=== PATIENT | female | born 1990 | race American Indian/Alaskan Native ===

== ENCOUNTER 2021-03-05 04:58 | Emergency (ER) | payer SELFPAY ==
[2021-03-05 05:45] VITALS: BP 130/80
[2021-03-05 06:14] LABS: Basophils # (Auto) 0.1 K/mm3 (0.0-0.1); Basophils % (Auto) 1.3 % (0.0-1.8); Eosinophils # (Auto) 0.2 K/mm3 (0.0-0.4); Hematocrit 39.1 % (30.3-42.9); Hemoglobin 12.5 gm/dl (10.1-14.3); Lymphocytes # (Auto) 2.6 K/mm3 (1.2-5.4); Mean Corpuscular HGB Conc 32 % (30-34); Mean Corpuscular Volume 80 fl (79-97); Monocytes # (Auto) 0.7 K/mm3 (0.0-0.8); Monocytes % (Auto) 11.7 % (0.0-7.3); Platelet Count 195 K/mm3 (140-440); Red Blood Count 4.88 M/mm3 (3.65-5.03); Red Cell Distribution Width 13.5 % (13.2-15.2)
--- NOTE | 2021-03-05 07:08 | XRay Report ---
CHEST 2 VIEWS INDICATION / CLINICAL INFORMATION: Chest pain. Short of breath COMPARISON: None available. FINDINGS: SUPPORT DEVICES: None. HEART / MEDIASTINUM: No significant abnormality. LUNGS / PLEURA: No significant pulmonary or pleural abnormality. No pneumothorax. ADDITIONAL FINDINGS: No significant additional findings. IMPRESSION: 1. No acute findings. Signer Name: Gareth Gaines MD Signed: 03/05/2021 7:03 AM Workstation Name: [id number]
[2021-03-05 07:14] LABS: Alanine Aminotransferase 21 units/L (7-56); Albumin 4.5 g/dL (3.9-5); Blood Urea Nitrogen 15 mg/dL (7-17); Calcium 9.5 mg/dL (8.4-10.2); Hemolysis Index 23
[2021-03-05 07:18] LABS: BUN/Creatinine Ratio 25
[2021-03-05] MEDS ORDERED: POTASSIUM CHLORIDE ER 20 MEQ TAB PO ONE (10:15)
--- NOTE | 2021-03-05 10:21 | Emergency Department Report ---
ED General Adult HPI - General Chief complaint: Chest Pain Stated complaint: CHEST DISCOMFORT Time Seen by Provider: 03/05/21 10:09 Source: patient Mode of arrival: Ambulatory Limitations: No Limitations - History of Present Illness Initial comments: Patient is a 30-year-old female presents emergency room complaints of pain to her right lower wisdom tooth that began a week ago. She states that over the last few days she has had a burning sensation in her throat and she feels like she needs to belch and has a lot of increased gas. She states that it causes discomfort in her throat. She states that occasionally she also experiences the burning in the chest. She states that it is worse after eating and worse with lying flat at night. She states that she has had a couple episodes of vomiting after after eating. She denies any fever, shortness of breath, leg swelling, diarrhea, cough, hemoptysis, calf pain, diaphoresis. No past medical history. No allergies to medications. Patient denies any recent travel, recent surgery, sick contacts, hormone use, recent immobilization. [facility] 03/02/2021 - Related Data Previous Rx's Medication Instructions Recorded Last Taken Type Acetaminophen [Tylenol] 650 mg PO Q8HR PRN #20 capsule 03/05/21 Unknown Rx Famotidine [Pepcid] 40 mg PO QHS #30 tablet 03/05/21 Unknown Rx Sucralfate [Carafate] 1 gm PO ACHS 7 Days #21 tablet 03/05/21 Unknown Rx Allergies Allergy/AdvReac Type Severity Reaction Status Date / Time No Known Allergies Allergy Unverified 03/05/21 05:45 ED Review of Systems ROS: Stated complaint: CHEST DISCOMFORT Other details as noted in HPI Comment: All other systems reviewed and negative ED Past Medical Hx - Past Medical History Previous Medical History?: No - Surgical History Past Surgical History?: No - Social History Smoking Status: Current Every Day Smoker - Medications Home Medications: Home Medications Medication Instructions Recorded Confirmed Last Taken Type Acetaminophen [Tylenol] 650 mg PO Q8HR PRN #20 capsule 03/05/21 Unknown Rx Famotidine [Pepcid] 40 mg PO QHS #30 tablet 03/05/21 Unknown Rx Sucralfate [Carafate] 1 gm PO ACHS 7 Days #21 tablet 03/05/21 Unknown Rx ED Physical Exam - General Limitations: No Limitations General appearance: alert, in no apparent distress - Head Head exam: Present: atraumatic, normocephalic - Eye Eye exam: Present: normal appearance - ENT ENT exam: Present: normal orophraynx, mucous membranes moist, other (impacted wisdom tooth present to the right lower gumline, no induration or edema of the gumline, no facial edema, no fluctuance, no trismus, no tongue elevation, uvula is midline, no uvular edema or deviation) - Respiratory Respiratory exam: Present: normal lung sounds bilaterally. Absent: respiratory distress, wheezes, rales, rhonchi, stridor, chest wall tenderness, accessory muscle use, decreased breath sounds, prolonged expiratory - Cardiovascular Cardiovascular Exam: Present: regular rate, normal rhythm, normal heart sounds. Absent: systolic murmur, diastolic murmur, rubs, gallop - Neurological Exam Neurological exam: Present: alert, oriented X3 - Psychiatric Psychiatric exam: Present: normal affect, normal mood - Skin Skin exam: Present: warm, dry, intact ED Course Vital Signs 03/05/21 05:44 Temperature 97.8 F Pulse Rate 75 Respiratory 16 Rate Blood Pressure 130/80 O2 Sat by Pulse 100 Oximetry ED Medical Decision Making - Lab Data Result diagrams: 03/05/21 05:59 03/05/21 05:59 Lab Results 03/05/21 03/05/21 03/05/21 Range/Units 05:59 05:59 05:59 WBC 5.9 (4.5-11.0) K/mm3 RBC 4.88 (3.65-5.03) M/mm3 Hgb 12.5 (10.1-14.3) gm/dl Hct 39.1 (30.3-42.9) % MCV 80 (79-97) fl MCH 26 L (28-32) pg MCHC 32 (30-34) % RDW 13.5 (13.2-15.2) % Plt Count 195 (140-440) K/mm3 Lymph % (Auto) 44.0 H (13.4-35.0) % Knott % (Auto) 11.7 H (0.0-7.3) % Eos % (Auto) 3.0 (0.0-4.3) % Baso % (Auto) 1.3 (0.0-1.8) % Lymph # (Auto) 2.6 (1.2-5.4) K/mm3 Knott # (Auto) 0.7 (0.0-0.8) K/mm3 Eos # (Auto) 0.2 (0.0-0.4) K/mm3 Baso # (Auto) 0.1 (0.0-0.1) K/mm3 Seg Neutrophils % 40.0 (40.0-70.0) % Seg Neutrophils # 2.4 (1.8-7.7) K/mm3 Sodium 137 (137-145) mmol/L Potassium 3.3 L (3.6-5.0) mmol/L Chloride 101.4 (98-107) mmol/L Carbon Dioxide 25 (22-30) mmol/L Anion Gap 14 mmol/L BUN 15 (7-17) mg/dL Creatinine 0.6 (0.6-1.2) mg/dL Estimated GFR > 60 ml/min BUN/Creatinine Ratio 25 % Glucose 94 (65-100) mg/dL Calcium 9.5 (8.4-10.2) mg/dL Total Bilirubin 0.20 (0.1-1.2) mg/dL AST 19 (5-40) units/L ALT 21 (7-56) units/L Alkaline Phosphatase 62 (35-129) units/L Troponin T < 0.010 (0.00-0.029) ng/mL Total Protein 7.6 (6.3-8.2) g/dL Albumin 4.5 (3.9-5) g/dL Albumin/Globulin Ratio 1.5 % HCG, Qual Negative (Negative) 03/05/21 Range/Units 09:27 WBC (4.5-11.0) K/mm3 RBC (3.65-5.03) M/mm3 Hgb (10.1-14.3) gm/dl Hct (30.3-42.9) % MCV (79-97) fl MCH (28-32) pg MCHC (30-34) % RDW (13.2-15.2) % Plt Count (140-440) K/mm3 Lymph % (Auto) (13.4-35.0) % Knott % (Auto) (0.0-7.3) % Eos % (Auto) (0.0-4.3) % Baso % (Auto) (0.0-1.8) % Lymph # (Auto) (1.2-5.4) K/mm3 Knott # (Auto) (0.0-0.8) K/mm3 Eos # (Auto) (0.0-0.4) K/mm3 Baso # (Auto) (0.0-0.1) K/mm3 Seg Neutrophils % (40.0-70.0) % Seg Neutrophils # (1.8-7.7) K/mm3 Sodium (137-145) mmol/L Potassium (3.6-5.0) mmol/L Chloride (98-107) mmol/L Carbon Dioxide (22-30) mmol/L Anion Gap mmol/L BUN (7-17) mg/dL Creatinine (0.6-1.2) mg/dL Estimated GFR ml/min BUN/Creatinine Ratio % Glucose (65-100) mg/dL Calcium (8.4-10.2) mg/dL Total Bilirubin (0.1-1.2) mg/dL AST (5-40) units/L ALT (7-56) units/L Alkaline Phosphatase (35-129) units/L Troponin T < 0.010 (0.00-0.029) ng/mL Total Protein (6.3-8.2) g/dL Albumin (3.9-5) g/dL Albumin/Globulin Ratio % HCG, Qual (Negative) - EKG Data EKG shows normal: sinus rhythm, axis, intervals, QRS complexes, ST-T waves Rate: normal - Radiology Data Radiology results: report reviewed Ordering Physician: ED MD JOE Date of Service: 03/05/21 Procedure(s): XR chest routine 2V Accession Number(s): [id number] cc: ED MD JOE Fluoro Time In Minutes: CHEST 2 VIEWS INDICATION / CLINICAL INFORMATION: Chest pain. Short of breath COMPARISON: None available. FINDINGS: SUPPORT DEVICES: None. HEART / MEDIASTINUM: No significant abnormality. LUNGS / PLEURA: No significant pulmonary or pleural abnormality. No pn eumothorax. ADDITIONAL FINDINGS: No significant additional findings. IMPRESSION: 1. No acute findings. Signer Name: Gareth Gaines MD Signed: 03/05/2021 7:03 AM Workstation Name: [id number] Transcribed By: Dictated By: Gareth Gaines MD Electronically Authenticated By: Gareth Gaines MD Signed Date/Time: 03/05/21702 DD/ 2 TD/TT: Print - Medical Decision Making Patient is a 30-year-old female presents emergency room complaints of pain to her right lower wisdom tooth that began a week ago. She states that over the last few days she has had a burning sensation in her throat and she feels like she needs to belch and has a lot of increased gas. She states that it causes discomfort in her throat. She states that occasionally she also experiences the burning in the chest. She states that it is worse after eating and worse with lying flat at night. She states that she has had a couple episodes of vomiting after after eating. She denies any fever, shortness of breath, leg swelling, diarrhea, cough, hemoptysis, calf pain, diaphoresis. No past medical history. No allergies to medications. Patient denies any recent travel, recent surgery, sick contacts, hormone use, recent immobilization. [facility] 03/02/2021. vitals are normal. on exam:impacted wisdom tooth present to the right lower gumline, no induration or edema of the gumline, no facial edema, no fluctuance, no trismus, no tongue elevation, uvula is midline, no uvular edema or deviation. all orders placed prior to my examination. labs with hypokalemia at 3.3, repleted with kdur, otherwise labs are normal. troponin negative x2. EKG WNL. CXR no acute process. Symptoms appear most consistent with dentalgia and GERD. No signs of dental abscess, facial cellulitis, facial abscess, Jef's at this time. Patient is having atypical chest pain described as a burning sensation which is most consistent with GERD, this is not typical of ACS. heart score is one secondary to tobacco use. PERC criteria negative for PE, PE unlikely. Disc ussed all results with patient answered questions. Discussed the importance of primary care and dental follow-up. Patient given prescription for Carafate, Pepcid, Tylenol. Advised patient Please take medication as prescribed. Increase your water intake. Please follow the diet for acid reflux. Follow-up with primary care doctor. Follow-up with a dentist. Return to emergency room for any new or worsening symptoms. Critical care attestation.: If time is entered above; I have spent that time in minutes in the direct care of this critically ill patient, excluding procedure time. ED Disposition Clinical Impression: Dentalgia, Atypical chest pain, Hypokalemia GERD (gastroesophageal reflux disease) Qualifiers: Esophagitis presence: without esophagitis Qualified Code(s): K21.9 - Gastro- esophageal reflux disease without esophagitis Disposition: TO HOME OR SELFCARE Is pt being admited?: No Does the pt Need Aspirin: No Condition: Stable Instructions: Heartburn, Hypokalemia, Food Choices for Gastroesophageal Reflux Disease, Adult Additional Instructions: Please take medication as prescribed. Increase your water intake. Please follow the diet for acid reflux. Follow-up with primary care doctor. Follow-up with a dentist. Return to emergency room for any new or worsening symptoms. Prescriptions: Famotidine [Pepcid] 40 mg PO QHS #30 tablet Sucralfate [Carafate] 1 gm PO ACHS 7 Days #21 tablet Acetaminophen [Tylenol] 650 mg PO Q8HR PRN #20 capsule PRN Reason: pain Referrals: MIRIAM LO MD [Staff Physician] - 3-5 Days [facility] [Provider Group] - 3-5 Days [facility], [LAB/CONTRACT] - 3-5 Days [facility] [Outside] - 3-5 Days [facility] [Outside] - 3-5 Days [facility] [Outside] - 3-5 Days PRIMARY MD ABIOLA [Primary Care Provider] - 3-5 Days Time of Disposition: 10:20 Print Language: JAPANESE HEART Score - HEART Score History: Slightly suspicious EKG: Normal Age: < 45 Risk factors: 1-2 risk factors Troponin: Troponin T < 0.010 ng/mL (0.00-0.029) 03/05/21 09:27 Troponin: < normal limit HEART Score: 1
--- NOTE | 2021-03-05 10:40 | Electrocardiograph Report ---
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
== END 2021-03-05 10:25 | disposition home or self-care (01) ==
LOC: ED 04:58
DX: K21.9 Gastro-esophageal reflux disease without esophagitis (principal); K08.89 Other specified disorders of teeth and supporting structures; E87.6 Hypokalemia; R07.89 Other chest pain; F17.200 Nicotine dependence, unspecified, uncomplicated; Z79.899 Other long term (current) drug therapy
CPT/HCPCS: 36415; 71046; 80053; 84484; 84703; 85025; 93005

== ENCOUNTER 2021-03-06 05:15 | Emergency (ER) | payer SELFPAY ==
[2021-03-06 05:35] VITALS: BP 116/72
[2021-03-06] MEDS ORDERED: LIDOCAINE VISCOUS 2% 15 ML ORAL LIQD PO ONE (06:01)
[2021-03-06] MEDS ORDERED: ALUM-MAG HYDROXIDE-SIMETHICONE 200-200-20MG/5ML ORAL LIQD 30 ML PO ONE (06:01)
--- NOTE | 2021-03-06 06:06 | Emergency Department Report ---
ED General Adult HPI - General Chief complaint: Dyspnea/Respdistress Stated complaint: DIFF BREATHING Time Seen by Provider: 03/06/21 06:01 Source: patient Mode of arrival: Ambulatory Limitations: No Limitations - History of Present Illness Initial comments: Patie patient started on Pepcid Carafate and Tylenol on yesterday. nt 30-year-old -[place] female with a history of GERD, states she still has a burning acid feeling in her throat especially when lying down. - Related Data Previous Rx's Medication Instructions Recorded Last Taken Type Acetaminophen [Tylenol] 650 mg PO Q8HR PRN #20 capsule 03/05/21 Unknown Rx Famotidine [Pepcid] 40 mg PO QHS #30 tablet 03/05/21 Unknown Rx Sucralfate [Carafate] 1 gm PO ACHS 7 Days #21 tablet 03/05/21 Unknown Rx Allergies Allergy/AdvReac Type Severity Reaction Status Date / Time No Known Allergies Allergy Unverified 03/05/21 05:45 ED Review of Systems ROS: Stated complaint: DIFF BREATHING Other details as noted in HPI Constitutional: denies: chills, fever Eyes: denies: eye pain, eye discharge, vision change ENT: denies: ear pain, throat pain Respiratory: denies: cough, shortness of breath, wheezing Cardiovascular: denies: chest pain, palpitations Endocrine: no symptoms reported Gastrointestinal: nausea, other (epigastric burning ) Genitourinary: denies: urgency, dysuria, discharge Musculoskeletal: denies: back pain, joint swelling, arthralgia Skin: denies: rash, lesions Neurological: denies: headache, weakness, paresthesias Psychiatric: denies: anxiety, depression Hematological/Lymphatic: denies: easy bleeding, easy bruising ED Past Medical Hx - Past Medical History Previous Medical History?: No - Social History Smoking Status: Unknown if ever smoked - Medications Home Medications: Home Medications Medication Instructions Recorded Confirmed Last Taken Type Acetaminophen [Tylenol] 650 mg PO Q8HR PRN #20 capsule 03/05/21 Unknown Rx Famotidine [Pepcid] 40 mg PO QHS #30 tablet 03/05/21 Unknown Rx Sucralfate [Carafate] 1 gm PO ACHS 7 Days #21 tablet 03/05/21 Unknown Rx ED Physical Exam - General Limitations: No Limitations General appearance: alert, in no apparent distress - Head Head exam: Present: atraumatic, normocephalic - Eye Eye exam: Present: normal appearance, EOMI Pupils: Present: normal accommodation - ENT ENT exam: Present: normal orophraynx, mucous membranes moist, TM's normal bilaterally, normal external ear exam - Neck Neck exam: Present: normal inspection - Respiratory Respiratory exam: Present: normal lung sounds bilaterally. Absent: respiratory distress, wheezes, stridor, chest wall tenderness - Cardiovascular Cardiovascular Exam: Present: regular rate, normal rhythm, normal heart sounds. Absent: systolic murmur, diastolic murmur, rubs, gallop - GI/Abdominal GI/Abdominal exam: Present: soft, normal bowel sounds. Absent: distended, tenderness, guarding, rebound (The story is true), rigid, bruit, hernia - Rectal Rectal exam: Present: deferred - Extremities Exam Extremities exam: Present: normal inspection (Persuasive), full ROM. Absent: tenderness - Back Exam Back exam: Present: normal inspection, full ROM, tenderness (Discharge). Absent: CVA tenderness (R), CVA tenderness (L) - Neurological Exam Neurological exam: Present: alert, oriented X3, normal gait - Psychiatric Psychiatric exam: Present: normal affect, normal mood - Skin Skin exam: Present: warm, dry, intact, normal color. Absent: rash ED Course Vital Signs 03/06/21 05:31 Temperature 97.3 F L Pulse Rate 80 Respiratory 18 Rate Blood Pressure 116/72 O2 Sat by Pulse 100 Oximetry ED Medical Decision Making - Medical Decision Making I have discussed GERD symptoms and discharge instructions as given on yesterday's with patient , she will continue to take medications and follow-up with gastroenterology as scheduled. Patient given GI cocktail at this time. Patient states current symptoms are exacerbated by eating and recumbent position. Patient stopped smoking yesterday, will continue to take H2 carloz as rx. pt verbalized agreement and understanding of discharge plan , there is no cp no sob , no wheezing no stridor Critical care attestation.: If time is entered above; I have spent that time in minutes in the direct care of this critically ill patient, excluding procedure time. ED Disposition Clinical Impression: GERD without esophagitis GERD (gastroesophageal reflux disease) Qualifiers: Esophagitis presence: without esophagitis Qualified Code(s): K21.9 - Gastro- esophageal reflux disease without esophagitis Disposition: DC-01 TO HOME OR SELFCARE Is pt being admited?: No Does the pt Need Aspirin: No Condition: Stable Instructions: Food Choices for Gastroesophageal Reflux Disease, Adult, Gastroesophageal Reflux Disease, Adult, [id number] Additional Instructions: continue current medications Referrals: [facility] [Provider Group] - 3-5 Days Forms: Work/School Release Form(ED) Time of Disposition: 06:09
== END 2021-03-06 06:30 | disposition home or self-care (01) ==
LOC: ED 05:15
DX: K21.9 Gastro-esophageal reflux disease without esophagitis (principal); Z79.899 Other long term (current) drug therapy
CPT/HCPCS: 99282

== ENCOUNTER 2021-03-07 05:34 | Emergency (ER) | payer SELFPAY ==
[2021-03-07] MEDS ORDERED: IPRATROPIUM/ALBUTEROL SULFATE 3 ML AMPUL.NEB IH ONE (07:54)
--- NOTE | 2021-03-07 07:57 | Emergency Department Report ---
HPI - General Chief Complaint: Dyspnea/Respdistress Time Seen by Provider: 03/07/21 07:33 - HPI HPI: This is a 30-year-old female who presents to the emergency department, for her third visit in 3 days, with a complaint of some throat pain, shortness of breath and feeling like her throat/neck is swollen. The patient was seen over the past 2 days and diagnosed with GERD. Patient was discharged with Pepcid, Carafate and Tylenol. She has been taking these medications compliantly but says that they have not been helpful. The patient is a tobacco smoker but has not smoked a cigarette in 3 days since the symptoms began. She says that her symptoms w orsen when she is laying flat. She feels that she wakes up in the middle of the night gasping for breath and that "something is stuck in the tube in my throat and chest." No primary care physician. No recent travel or sick contacts at home. ED Past Medical Hx - Past Medical History Previous Medical History?: No Hx GERD: Yes - Surgical History Past Surgical History?: No - Social History Smoking Status: Never Smoker Substance Use Type: None - Medications Home Medications: Home Medications Medication Instructions Recorded Confirmed Last Taken Type Famotidine [Pepcid] 40 mg PO QHS #30 tablet 03/05/21 03/07/21 Unknown Rx Sucralfate [Carafate] 1 gm PO ACHS 7 Days #21 tablet 03/05/21 03/07/21 Unknown Rx Acetaminophen [Tylenol] 500 mg PO Q8HR PRN 03/07/21 03/07/21 Unknown History Albuterol Mdi (or & Nicu Only) 2 puff IH QID PRN #8.5 gram 03/07/21 Unknown Rx [ProAir HFA Inhaler] ED Review of Systems ROS: Stated complaint: [place] Other details as noted in HPI Comment: All other systems reviewed and negative Constitutional: denies: chills, fever Eyes: denies: eye pain, vision change ENT: throat pain. denies: ear pain Respiratory: shortness of breath. denies: cough Cardiovascular: denies: chest pain, palpitations Gastrointestinal: denies: abdominal pain, vomiting Genitourinary: denies: dysuria, discharge Musculoskeletal: denies: back pain, arthralgia Skin: denies: rash, lesions Neurological: denies: headache, weakness Physical Exam - Physical Exam Vital Signs: Vital Signs 03/07/21 05:50 Temperature 98.2 F Pulse Rate 81 Respiratory 18 Rate Blood Pressure 122/83 O2 Sat by Pulse 99 Oximetry Physical Exam: GENERAL: The patient is well-developed well-nourished. HENT: Normocephalic. Atraumatic. Patient has moist mucous membranes. Oropharynx is clear without tonsillar hypertrophy, erythema or exudates. No drooling or trismus. EYES: Extraocular motions are intact. Pupils equal reactive to light bilaterally. NECK: Supple. Trachea is midline. There is a right-sided tender but mobile submandibular lymph node. CHEST/LUNGS: Clear to auscultation. No tachypnea or accessory muscle use. There is no respiratory distress noted. HEART/CARDIOVASCULAR: Regular. There is no tachycardia. There is no murmur. ABDOMEN: Abdomen is soft, nontender. Patient has normal bowel sounds. Cranial nerves II through XII grossly intact. SKIN: Skin is warm and dry. NEURO: The patient is awake, alert, and oriented. The patient is cooperative. The patient has no focal neurologic deficits. Normal speech. MUSCULOSKELETAL: There is no tenderness or deformity. There is no limitation range of motion. There is no evidence of acute injury. ED Course Vital Signs 03/07/21 05:50 Temperature 98.2 F Pulse Rate 81 Respiratory 18 Rate Blood Pressure 122/83 O2 Sat by Pulse 99 Oximetry ED Medical Decision Making - Lab Data Result diagrams: 03/07/21 08:02 03/07/21 08:02 Lab Results 03/07/21 03/07/21 03/07/21 Range/Units 08:02 08:02 08:02 WBC 5.0 (4.5-11.0) K/mm3 RBC 4.40 (3.65-5.03) M/mm3 Hgb 11.2 (10.1-14.3) gm/dl Hct 34.7 (30.3-42.9) % MCV 79 (79-97) fl MCH 26 L (28-32) pg MCHC 32 (30-34) % RDW 13.0 L (13.2-15.2) % Plt Count 189 (140-440) K/mm3 Lymph % (Auto) 42.1 H (13.4-35.0) % [place] % (Auto) 14.0 H (0.0-7.3) % Eos % (Auto) 2.2 (0.0-4.3) % Baso % (Auto) 0.4 (0.0-1.8) % Lymph # (Auto) 2.1 (1.2-5.4) K/mm3 [place]verse # (Auto) 0.7 (0.0-0.8) K/mm3 Eos # (Auto) 0.1 (0.0-0.4) K/mm3 Baso # (Auto) 0.0 (0.0-0.1) K/mm3 Seg Neutrophils % 41.3 (40.0-70.0) % Seg Neutrophils # 2.1 (1.8-7.7) K/mm3 Sodium 138 (137-145) mmol/L Potassium 3.2 L (3.6-5.0) mmol/L Chloride 100.9 (98-107) mmol/L Carbon Dioxide 26 (22-30) mmol/L Anion Gap 14 mmol/L BUN 8 (7-17) mg/dL Creatinine 0.5 L (0.6-1.2) mg/dL Estimated GFR > 60 ml/min BUN/Creatinine Ratio 16 % Glucose 91 (65-100) mg/dL Calcium 9.5 (8.4-10.2) mg/dL Total Bilirubin 0.50 (0.1-1.2) mg/dL AST 12 (5-40) units/L ALT 13 (7-56) units/L Alkaline Phosphatase 54 (35-129) units/L Troponin T < 0.010 (0.00-0.029) ng/mL Total Protein 7.1 (6.3-8.2) g/dL Albumin 4.1 (3.9-5) g/dL Albumin/Globulin Ratio 1.4 % HCG, Qual Negative (Negative) - EKG Data -: EKG Interpreted by Ms EKG shows normal: sinus rhythm, axis, intervals, QRS complexes, ST-T waves Rate: normal - EKG Data When compared to previous EKG there are: previous EKG unavailable Interpretation: normal EKG - Radiology Data Radiology results: image reviewed interpreted by me: Chest x-ray does not show any acute process. There are no pleural effusions, obvious pneumonia and there is no pneumothorax. No significant cardiomegaly. X-ray of the neck does not show any soft tissue abnormalities, osseous abnormalities, or any other acute process. - Medical Decision Making This patient presents to the emergency department for the third visit in 3 days with a complaints of some shortness of breath that appears to worsen at night when the patient is trying to sleep. She also feels that there is some occlusion or something stuck in the "tube in my neck" which I believe the patient is referring to the esophagus. On examination oropharynx is clear without tonsillar hypertrophy, erythema or exudates. She does not have any drooling or trismus. The patient is seen swallowing without any difficulty. Heart and lung sounds are normal to auscultation. The patient does not appear in any respiratory or acute distress. An EKG was done that does not show any morphology consistent with ST elevation myocardial infarction or any dysrhythmia. Chest x-ray does not show any pneumonia, pneumothorax, pleural effusions. X-ray of the soft tissue of the neck does not show any foreign body, osseous abnormalities, tracheal stenosis. The patient's labs have been unremarkable including CBC, metabolic panel and a negative troponin. The patient did have a slightly low potassium level for which she was given potassium supplementation. She was given a DuoNeb breathing treatment. She was reevaluated multiple times of her multiple hours and appears improved. The patient has been seen sleeping and resting comfortably multiple times during ED course. Vital signs have been reassuring throughout her ED course as well including being afebrile. There may be some level of GERD consistent with her previous visits based on her history and/or the description of her symptoms. She does not appear to have any life-threatening or emergent condition that requires admission. She has been given multiple outpatient referrals for primary care and still encouraged to see gastroenterology. She will return to the emergency department with any worsening of her symptoms or with any acute distress. Critical Care Time: No Critical care attestation.: If time is entered above; I have spent that time in minutes in the direct care of this critically ill patient, excluding procedure time. ED Disposition Clinical Impression: Atypical chest pain Dyspnea Qualifiers: Dyspnea type: shortness of breath Qualified Code(s): R06.02 - Shortness of breath; R06.00 - Dyspnea, unspecified; R06.01 - Orthopnea GERD (gastroesophageal reflux disease) Qualifiers: Esophagitis presence: esophagitis presence not specified Qualified Code(s): K21.9 - Gastro-esophageal reflux disease without esophagitis Disposition: TO HOME OR SELFCARE Is pt being admited?: No Condition: Stable Instructions: Shortness of Breath, Adult, Gastroesophageal Reflux Disease, Adult Additional Instructions: Please follow-up with a primary care physician in the next few days. It is still recommended that you follow-up with gastroenterology with the previously given referral to [facility]. Return to the emergency department with any worsening of your symptoms, new or concerning symptoms not addressed during this current emergency department visit, or with any acute distress. Prescriptions: Albuterol Mdi (or & Nicu Only) [ProAir HFA Inhaler] 2 puff IH QID PRN #8.5 gram PRN Reason: Shortness Of Breath Referrals: PRIMARY CAREMD [Primary Care Provider] - 2-3 Days MIRIAM LO MD [Staff Physician] - 2-3 Days SUNNY NAVAS MD [Staff Physician] - 2-3 Days [facility] [Provider Group] - 2-3 Days Time of Disposition: 11:09
[2021-03-07 08:23] LABS: Basophils % (Auto) 0.4 % (0.0-1.8); Eosinophils # (Auto) 0.1 K/mm3 (0.0-0.4); Eosinophils % (Auto) 2.2 % (0.0-4.3); Hematocrit 34.7 % (30.3-42.9); Hemoglobin 11.2 gm/dl (10.1-14.3); Lymphocytes # (Auto) 2.1 K/mm3 (1.2-5.4); Lymphocytes % (Auto) 42.1 % (13.4-35.0); Mean Corpuscular HGB Conc 32 % (30-34); Mean Corpuscular Volume 79 fl (79-97); Monocytes # (Auto) 0.7 K/mm3 (0.0-0.8); Platelet Count 189 K/mm3 (140-440)
[2021-03-07 08:52] LABS: Alanine Aminotransferase 13 units/L (7-56); Albumin 4.1 g/dL (3.9-5); BUN/Creatinine Ratio 16; Blood Urea Nitrogen 8 mg/dL (7-17); Calcium 9.5 mg/dL (8.4-10.2); Hemolysis Index 2
[2021-03-07] MEDS ORDERED: POTASSIUM CHLORIDE ER 20 MEQ TAB PO ONE (08:53)
--- NOTE | 2021-03-07 09:09 | XRay Report ---
CHEST PA AND LATERAL VIEWS INDICATION: SOB. COMPARISON: 2 days prior FINDINGS: Support devices: None. Heart: Within normal limits. Lungs/Pleura: No acute pulmonary or pleural findings. IMPRESSION: 1. No acute findings. Signer Name: James Baker MD Signed: 03/07/2021 9:04 AM Workstation Name: [id number]
--- NOTE | 2021-03-07 09:15 | XRay Report ---
SOFT TISSUE NECK HISTORY: COMPARISON: None. TECHNIQUE: AP and lateral view(s) of the neck obtained. FINDINGS: Epiglottis: No significant abnormality. Airway: No significant abnormality. Retropharyngeal soft tissues: No significant abnormality. Bones: No significant abnormality. Additional findings: None. IMPRESSION: 1. No significant abnormality. Signer Name: Jone Zabala MD Signed: 03/07/2021 9:10 AM Workstation Name: [id number]
[2021-03-07 11:19] VITALS: BP 108/73
--- NOTE | 2021-03-08 11:27 | Electrocardiograph Report ---
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
== END 2021-03-07 11:19 | disposition home or self-care (01) ==
LOC: ED 05:34
DX: R07.89 Other chest pain (principal); K21.9 Gastro-esophageal reflux disease without esophagitis; R06.00 Dyspnea, unspecified; Z79.899 Other long term (current) drug therapy
CPT/HCPCS: 36415; 70360; 71046; 80053; 84484; 84703; 85025; 93005; 94640; 94644

== ENCOUNTER 2021-03-08 00:15 | Emergency (ER) | payer SELFPAY | END 2021-03-08 00:23 | disposition left against medical advice (07) | LOC: ED 00:15 | DX: R06.02 Shortness of breath (principal); Z53.21 Procedure and treatment not carried out due to patient leaving prior to being seen by health care provider ==

== ENCOUNTER 2021-03-12 03:26 | Emergency (ER) | payer SELFPAY ==
[2021-03-12 04:05] VITALS: BP 146/98
== END 2021-03-12 06:00 | disposition left against medical advice (07) ==
LOC: ED 03:26
DX: R11.0 Nausea (principal); Z53.21 Procedure and treatment not carried out due to patient leaving prior to being seen by health care provider

== ENCOUNTER 2021-08-12 18:07 | Emergency (ER) | payer SELFPAY | END 2021-08-13 01:50 | disposition left against medical advice (07) | LOC: ED 18:07 | DX: K08.89 Other specified disorders of teeth and supporting structures (principal); Z53.21 Procedure and treatment not carried out due to patient leaving prior to being seen by health care provider ==